=== PATIENT | female | born 1925 | race Caucasian/White ===

== ENCOUNTER → 2016-09-16 | Outpatient (CLI) | payer OTHER ==
[~2016-09-16] MED LIST: ACET-1175 PO; ASPI325T45 PO; ATOR80TA PO; CEPH-570 PO; DIVA250T PO; DOCU100C31 PO; ERGO1CAP41 PO; FURO20TA PO; GLIP5TAB11 PO; HPRIS5M SQ; HYDR-5688 PO; LEVO75TA25 PO; LXP/10 PO; NCDT14 TD; SACC250C PO; SITA50TA PO; ULT50X PO
[2016-09-16 09:26] LABS: ESTIMATED AVERAGE GLUCOSE 169 mg/dl; HA1C FLAG Normal (Normal)
== END ==
LOC: C.LABCC 08:21
PROVIDERS: ATTEND Internal Medicine
DX: E11.9 Type 2 diabetes mellitus without complications (principal)

== ENCOUNTER → 2016-10-18 | Outpatient (CLI) | payer OTHER | END | disposition home or self-care (01) | LOC: C.RDSM 13:15 | PROVIDERS: ATTEND Physical Medicine & Rehabilitation Sports Medicine | DX: Z96.7 Presence of other bone and tendon implants (principal) ==

== ENCOUNTER → 2017-01-14 | Outpatient (CLI) | payer OTHER ==
[~2017-01-14] MED LIST changes: -ERGO1CAP41 PO; +ERGO500011 PO
[2017-01-14 09:53] LABS: ESTIMATED AVERAGE GLUCOSE 217 mg/dl; HA1C FLAG Normal (Normal)
== END ==
LOC: C.LABCC 08:14
PROVIDERS: ATTEND Internal Medicine
DX: E11.9 Type 2 diabetes mellitus without complications (principal)

== ENCOUNTER → 2017-01-16 | Outpatient (CLI) | payer OTHER | END | disposition home or self-care (01) | LOC: C.RDSM 15:57 | PROVIDERS: ATTEND Physical Medicine & Rehabilitation Sports Medicine | DX: Z96.7 Presence of other bone and tendon implants (principal) ==